=== PATIENT | male | born 1975 | race Caucasian/White ===

== ENCOUNTER 2017-10-04 03:58 | Inpatient (IN) | payer OTHER ==
[2017-10-04] VITALS (38 sets, daily range): BP systolic 92–143; BP diastolic 52–88; PULSE 61–110; TEMP 36.6–36.9; O2SAT 94–100; BMI 25.3
[~2017-10-04] VITALS: Ht 185.4 cm; Wt 87.9 kg
[2017-10-04] MEDS ORDERED: VENL150C56 PO (04:56)
[2017-10-04] MEDS ORDERED: RISP3TAB12 PO (04:56)
[2017-10-04] MEDS ORDERED: CLON2TAB3 PO (04:57)
[2017-10-04] MEDS ORDERED: INSDGIPEN SC (04:58)
[2017-10-04] MEDS ORDERED: ALPR1TAB3 PO (04:58)
[2017-10-04] MEDS ORDERED: ASPI81TA28 PO (04:59)
[2017-10-04] MEDS ORDERED: DIVA500T59 PO (05:00)
[2017-10-04] MEDS ORDERED: QUET1TAB7 PO (05:01)
[2017-10-04] MEDS ORDERED: BUPRTAB51 PO (05:02)
[2017-10-04] MEDS ORDERED: METF-384 PO (05:02)
[2017-10-04] MEDS ORDERED: GLIM4TAB2 PO (05:03)
--- NOTE | 2017-10-04 05:23 | EMERGENCY ROOM VISIT NOTE ---
History Report prepared by Bhakti: Thony Dietrich Under the Supervision of: Dr. Lesvia Shen D.O. First contact with patient: 04:29 Chief Complaint: CONFUSION Stated Complaint: ALTERED MENTAL STATUS History of Present Illness HPI limited due to altered mental status. The patient is a 41 year old male with a history of insulin-dependent diabetes and polysubstance abuse who presents to the Emergency Room with complaints of constant altered mental status that began prior to arrival. Patient was transferred from [facility] due to being delusional, confused, and disorientated. Patient has been a resident at [facility] for 1 day. Patient does not recall how he got to the ER. He believes that he was transferred from [facility] to [facility]. He admits to intermittent hallucinations. He states he was addicted to marijuana, alcohol, GBL, and cocaine. Patient is currently taking Keppra and insulin. Patient's last dose of Keppra was 8 hours ago. Patient states he is diabetic. Patient states he is employed at an [employer]. Source of History: patient Onset: Prior to arrival Position: other (Global) Modifying Factors (Relieving): other (None) Note: Patient has hallucinations. Review of Systems ROS limited secondary due to altered mental status. Past Medical & Surgical Medical Problems: (1) Diabetes Family History No pertinent family medical history. Social History Smoking Status: Never Smoker Alcohol Use: none Drug Use: cocaine, marijuana Occupation Status: employed Current/Historical Medications Scheduled Alprazolam (Xanax), 1 MG PO TID Aspirin (Aspirin Ec), 81 MG PO DAILY Bupropion (Wellbutrin-Xl), 150 MG PO DAILY Clonazepam (Klonopin), 2 MG PO HS Divalproex Sodium (Depakote), 500 MG PO BID Glimepiride (Glimepiride), 6 MG PO DAILY Insulin Glargine (Lantus Solostar), 8 SC QPM Metformin Hcl (Glucophage), 1,000 MG PO BID Quetiapine Fumarate (Seroquel), 25 MG PO BID Risperidone (Risperdal), 3 MG PO HS Venlafaxine Hcl (Effexor Extended Rel), 150 MG PO DAILY Allergies Coded Allergies: Azithromycin (Verified Allergy, Unknown, hives, 10/04/17) Erythromycin (Verified Allergy, Unknown, rash, 10/04/17) Physical Exam Vital Signs Date Time Temp Pulse Resp B/P (MAP) Pulse Ox O2 Delivery O2 Flow Rate FiO2 10/04/17 08:33 103 18 141/84 95 Room Air 10/04/17 06:58 96 18 158/81 95 Room Air 10/04/17 06:33 92 16 136/82 97 Room Air 10/04/17 05:05 107 10/04/17 04:06 36.8 99 18 141/88 95 Room Air Physical Exam HEENT: Head - normocephalic and atraumatic Pupils are equal, round, and reactive to light. Extraocular eye muscles are intact, and sclera are anicteric. Nose - moist nasal mucosa without discharge. Mouth - moist buccal mucosa. Oropharynx is nonerythematous and there is no tonsillar exudate or edema noted. Neck: Supple; no JVD, nuchal rigidity, cervical lymphadenopathy. Heart: Regular rate and rhythm. There is a normal S1 and S2 with no murmurs, clicks, or gallops appreciated. Lungs: Clear to auscultation bilaterally with no wheezes, rales, or rhonchi. Abdomen: Soft, completely nontender, nondistended, with good bowel sounds. There are no palpable pulsatile masses or hepatosplenomegaly. There is no guarding, rigidity, or rebound noted. Extremities: No evidence of cyanosis, clubbing, or edema. There are easily palpable peripheral pulses. Skin: warm and dry with good turgor and no rashes. Neuro: easily follows commands, confused about time and place, delusional at times. Medical Decision & Procedures ER Provider Diagnostic Interpretation: Radiology results as stated below per my review and the radiologist's interpretation: CT SCAN OF THE BRAIN WITHOUT IV CONTRAST CLINICAL HISTORY: Change in mental status. COMPARISON STUDY: No priors. TECHNIQUE: Unenhanced axial CT scan of the brain is performed from the vertex to the skull base. A dose lowering technique was utilized adhering to the principles of ALARA. The skull base was scanned twice due to motion artifact. CT DOSE: 1074.96 mGy.cm FINDINGS: Brain parenchyma: The brain parenchyma is normal in appearance. There is no hemorrhage, mass effect, or evidence of acute territorial ischemia by CT criteria. Aquino-white matter is preserved. No extra-axial fluid collection is seen. Ventricles, sulci, cisterns: Normal in configuration. Intracranial vasculature: The visualized intracranial vasculature at the skull base is normal in appearance. Calvarium: Unremarkable. Sinuses and mastoids: The visualized paranasal sinuses are clear. The mastoid air cells are well pneumatized. Orbits: The bony orbits are grossly intact. IMPRESSION: There is no hemorrhage, mass effect, or evidence of acute territorial ischemia by CT criteria. Electronically signed by: Luisito Caldwell M.D. 10/04/2017 8:02 AM Laboratory Results 10/04/17 04:32 Red Blood Count 4.21, Mean Corpuscular Volume 91.2, Mean Corpuscular Hemoglobin 32.3, Mean Corpuscular Hemoglobin Concent 35.4, Mean Platelet Volume 11.9, Neutrophils (%) (Auto) 78.6, Lymphocytes (%) (Auto) 13.2, Monocytes (%) (Auto) 7.5, Eosinophils (%) (Auto) 0.0, Basophils (%) (Auto) 0.3, Neutrophils # (Auto) 5.68, Lymphocytes # (Auto) 0.95, Monocytes # (Auto) 0.54, Eosinophils # (Auto) 0.00, Basophils # (Auto) 0.02 10/04/17 04:32 Test 10/04/17 04:32 10/04/17 05:05 10/04/17 05:12 White Blood Count 7.22 K/uL (4.8-10.8) Red Blood Count 4.21 M/uL (4.7-6.1) Hemoglobin 13.6 g/dL (14.0-18.0) Hematocrit 38.4 % (42-52) Mean Corpuscular Volume 91.2 fL (80-100) Mean Corpuscular Hemoglobin 32.3 pg (25-34) Mean Corpuscular Hemoglobin Concent 35.4 g/dl (32-36) Platelet Count 146 K/uL (130-400) Mean Platelet Volume 11.9 fL (7.4-10.4) Neutrophils (%) (Auto) 78.6 % Lymphocytes (%) (Auto) 13.2 % Monocytes (%) (Auto) 7.5 % Eosinophils (%) (Auto) 0.0 % Basophils (%) (Auto) 0.3 % Neutrophils # (Auto) 5.68 K/uL (1.4-6.5) Lymphocytes # (Auto) 0.95 K/uL (1.2-3.4) Monocytes # (Auto) 0.54 K/uL (0.11-0.59) Eosinophils # (Auto) 0.00 K/uL (0-0.5) Basophils # (Auto) 0.02 K/uL (0-0.2) RDW Standard Deviation 39.3 fL (36.4-46.3) RDW Coefficient of Variation 11.8 % (11.5-14.5) Immature Granulocyte % (Auto) 0.4 % Immature Granulocyte # (Auto) 0.03 K/uL (0.00-0.02) Anion Gap 7.0 mmol/L (3-11) Est Creatinine Clear Calc Drug Dose 110.9 ml/min Estimated GFR () 108.6 Estimated GFR (Non- 93.7 BUN/Creatinine Ratio 13.4 (10-20) Calcium Level 8.7 mg/dl (8.5-10.1) Magnesium Level 1.6 mg/dl (1.8-2.4) Total Bilirubin 0.4 mg/dl (0.2-1) Direct Bilirubin < 0.1 mg/dl (0-0.2) Aspartate Amino Transf (AST/SGOT) 8 U/L (15-37) Alanine Aminotransferase (ALT/SGPT) 21 U/L (12-78) Alkaline Phosphatase 88 U/L (45-117) Total Protein 6.8 gm/dl (6.4-8.2) Albumin 3.7 gm/dl (3.4-5.0) Beta-Hydroxybutyric Acid 2.05 mg/dL (0.2-2.81) Thyroid Stimulating Hormone (TSH) 1.790 uIu/ml (0.300-4.500) Salicylates Level < 1.7 mg/dl (2.8-20) Acetaminophen Level < 2 ug/ml (10-30) Ethyl Alcohol mg/dL < 3.0 mg/dl (0-3) Urine Color YELLOW Urine Appearance CLEAR (CLEAR) Urine pH 6.0 (4.5-7.5) Urine Specific [place] > 1.045 (1.000-1.030) Urine Protein NEG (NEG) Urine Glucose (UA) 3+ (NEG) Urine Ketones TRACE (NEG) Urine Occult Blood NEG (NEG) Urine Nitrite NEG (NEG) Urine Bilirubin NEG (NEG) Urine Urobilinogen NEG (NEG) Urine Leukocyte Esterase NEG (NEG) Urine Opiates Screen NEG (NEG) Urine Methadone, Qualitative NEG (NEG) Urine Barbiturates NEG (NEG) Urine Phencyclidine (PCP) Level NEG (NEG) Ur Amphetamine/Methamphetamine NEG (NEG) MDMA (Ecstasy) Screen NEG (NEG) Urine Benzodiazepines Screen POS (NEG) Urine Cocaine Metabolite NEG (NEG) Urine Marijuana (THC) NEG (NEG) Ammonia 22.0 umol/L (11-32) Laboratory results per my review. Medications Administered Medications (Trade) Dose Ordered Sig/Luma Route Start Time Stop Time Status Last Admin Dose Admin Lorazepam (Ativan Inj) 1 mg NOW STAT IV 10/04/17 06:20 10/04/17 06:21 DC 10/04/17 06:31 1 MG Sodium Chloride 1,000 ml @ 250 mls/hr Q4H STAT IV 10/04/17 07:27 10/04/17 10:49 DC 10/04/17 07:27 250 MLS/HR Lorazepam (Ativan Inj) 2 mg NOW STAT IV 10/04/17 08:41 10/04/17 08:42 DC 10/04/17 08:45 2 MG Sodium Chloride 1,000 ml @ 80 mls/hr [id number] IV 10/04/17 08:36 11/03/17 08:35 10/04/17 10:35 80 MLS/HR Procedure Ativan Inj 1mg IV, Sodium Chloride 1000 ml @ 250 mls/hr IV. ECG Indication: altered mental status Rate (beats per minute): 95 Rhythm: normal sinus Findings: no acute ischemic change, no ectopy, other (Poor baseline) ED Course 0440: The patient was evaluated in room B10. A complete history and physical examination were performed. Nursing notes and notes from [facility] were reviewed. An IV lock was initiated and labs were drawn as above. 0515: The patient had be redirected by nursing staff as he was up out of bed. His vital signs were stable. I ordered a CT scan of the brain because of his persistent altered mental status. 0620: The patient became more agitated and I ordered Ativan Inj 1mg IV 0640: I reassessed the patient and found him roaming the hallways with his EKG cords still attached. Nursing staff was alerted to watch him more closely. 0727: Sodium Chloride 1000 ml @ 250 mls/hr IV. 0730: Upon reevaluation, I discussed findings and results with the patient. He verbalized agreement of the treatment plan. I spoke with Dr. Lindquist of the [facility] Service. The patient will be evaluated for further management and care. Medical Decision The patient is a 41 year old male who presents to the ED with an altered mental state. Differential diagnosis includes drug withdrawal, alcohol withdrawal, serotonin syndrome, DKA, hypoglycemia, intracranial process, meningitis, and encephalopathy. Lab results show no leukocytosis, stable H&H, glucose = 314, BHA = 2.0, renal function is normal, LFTs are normal, ammonia level is normal, alcohol is negative, Tylenol and aspirin is negative, tox screen is positive for benzodiazepines, and urine positive for trace ketones. This is a 41-year-old male patient with a history of insulin dependent diabetes and drug addiction. He presents to the emergency department with an altered mental status and delusions. The history is somewhat difficult to understand but according to the patient, he was transferred from [facility] to [facility] yesterday. According to the notes from [facility], the patient became more agitated and delirious and therefore they sent him to the hospital for evaluation. He denies consuming alcohol in many months. He does admit to addiction to benzodiazepines most recently and abuse of GBL. The patient was found to be hyperglycemic but no evidence of DKA. Ammonia levels were normal. CT scan of the brain was unremarkable. I believe the patient is suffering from acute benzodiazepine withdrawal. [facility] for [facility]. Medication Reconcilliation Current Medication List: was personally reviewed by me Blood Pressure Screening Patient's blood pressure: Elevated blood pressure Blood pressure disposition: Elevated BP felt to be situational Consults Time Called: 06 Consulting Physician: Dr. Lindquist - [facility] Returned Call: [phone] Discussed the patient's case. The patient will be evaluated for further management. Impression Primary Impression: Benzodiazepine withdrawal Additional Impression: Hyperglycemia Scribe Attestation The scribe's documentation has been prepared under my direction and personally reviewed by me in its entirety. I confirm that the note above accurately reflects all work, treatment, procedures, and medical decision making performed by me. 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
[2017-10-04 05:42] LABS: ALBUMIN 3.7 gm/dl (3.4-5.0); ALT/SGPT 21 U/L (12-78); AST/SGOT 8 U/L (15-37); BLOOD UREA NITROGEN 13 mg/dl (7-18); CALCIUM 8.7 mg/dl (8.5-10.1); CARBON DIOXIDE 28 mmol/L (21-32); GLUCOSE 314 mg/dl (70-99); POTASSIUM 3.8 mmol/L (3.5-5.1); SODIUM 135 mmol/L (136-145)
[2017-10-04 05:44] LABS: BASO % 0.3 %; BASO ABS # 0.02 K/uL (0-0.2); HEMATOCRIT 38.4 % (42-52); HEMOGLOBIN 13.6 g/dL (14.0-18.0); IG# 0.03 K/uL (0.00-0.02); LYMPH % 13.2 %; LYMPH ABS # 0.95 K/uL (1.2-3.4); MEAN CELL VOLUME 91.2 fL (80-100); MEAN CORPUSCULAR HEMOGLOBIN 32.3 pg (25-34); MEAN CORPUSCULAR HGB CONC 35.4 g/dl (32-36); MEAN PLATELET VOLUME 11.9 fL (7.4-10.4); MONO % 7.5 %; MONO ABS # 0.54 K/uL (0.11-0.59); NEUT % 78.6 %; NEUT ABS # 5.68 K/uL (1.4-6.5); PLATELET COUNT 146 K/uL (130-400); RED CELL DISTRIBUTION WIDTH CV 11.8 % (11.5-14.5); RED CELL DISTRIBUTION WIDTH SD 39.3 fL (36.4-46.3); TOTAL PROTEIN 6.8 gm/dl (6.4-8.2); WHITE BLOOD COUNT 7.22 K/uL (4.8-10.8)
[2017-10-04 05:51] LABS: ALKALINE PHOSPHATASE 88 U/L (45-117)
[2017-10-04] MEDS ORDERED: LORAZEPAM 2 MG/ML 1 ML VIAL IV STA ×2 (06:20→08:41)
[2017-10-04] MEDS ORDERED: SODIUM CHLORIDE 0.9% 1000ML 1,000 ML IV STA (07:27)
--- NOTE | 2017-10-04 08:03 | DIAGNOSTIC IMAGING REPORT ---
CT SCAN OF THE BRAIN WITHOUT IV CONTRAST CLINICAL HISTORY: Change in mental status. COMPARISON STUDY: No priors. TECHNIQUE: Unenhanced axial CT scan of the brain is performed from the vertex to the skull base. A dose lowering technique was utilized adhering to the principles of ALARA. The skull base was scanned twice due to motion artifact. CT DOSE: 1074.96 mGy.cm FINDINGS: Brain parenchyma: The brain parenchyma is normal in appearance. There is no hemorrhage, mass effect, or evidence of acute territorial ischemia by CT criteria. Aquino-white matter is preserved. No extra-axial fluid collection is seen. Ventricles, sulci, cisterns: Normal in configuration. Intracranial vasculature: The visualized intracranial vasculature at the skull base is normal in appearance. Calvarium: Unremarkable. Sinuses and mastoids: The visualized paranasal sinuses are clear. The mastoid air cells are well pneumatized. Orbits: The bony orbits are grossly intact. IMPRESSION: There is no hemorrhage, mass effect, or evidence of acute territorial ischemia by CT criteria. Electronically signed by: Luisito Caldwell M.D. 10/04/2017 8:02 AM Dictated Date/Time: 10/04/2017 8:00 AM
[2017-10-04] MEDS ORDERED: LORAZEPAM 2 MG/ML 1 ML VIAL ONE (08:42)
[2017-10-04] MEDS ORDERED: GLUCAGON FOR INJ 1 MG VIAL SQ PRN (08:45)
[2017-10-04] MEDS ORDERED: GLUCOSE 10 TABS/TUBE PO PRN (08:45)
[2017-10-04] MEDS ORDERED: DEXTROSE 50% 50 ML SYR IV PRN (08:45)
[2017-10-04] MEDS ORDERED: GLUCOSE 40% GEL 15 GM TUBE PO PRN (08:45)
[2017-10-04] MEDS ORDERED: LORAZEPAM 2 MG/ML 1 ML VIAL IV PRN (09:00)
[2017-10-04] MEDS ORDERED: GABAPENTIN 600 MG TAB PO SCH (09:00)
--- NOTE | 2017-10-04 09:24 | History and Physical ---
History & Physical Date & Time of Service: Oct 04, 2017 at 09:05 Chief Complaint: Altered Mental Status Primary Care Physician: No Doctor, Assigned History of Present Illness Source: patient, clinic records This is a 41 year old male with an extensive history of drug and alcohol abuse. As per records, he has a history of alcohol abuse and multiple complications including alcoholic liver disease, thrombocytopenia, alcoholic coagulopathy, chronic pancreatitis and many withdrawal symptoms including withdrawal seizures. He also has an extensive drug abuse history which includes benzodiazepine abuse, cocaine abuse, GBL and marijuana abuse. He states that he last had a drink in January of 2017 due to being in trouble with the law. He last had cocaine about 6-7 years ago. He recently has had trouble with benzo abuse - has been getting benzodiazepines for his anxiety/depression - including Klonopin and Xanax, which he states he stops taking at random times, and then takes too much of when he gets withdrawal symptoms. He also is prescribed Risperdal and states he stops taking this at times on his own, but realizes he needs it, so takes multiple tablets at once. He was seen at the [facility] - but was sent over here due to worsening confusion, altered mental status, agitation and combativeness. He states he realizes that these symptoms occur but cannot stop his anger/agitation. Currently, denies most other symptoms, including chest pain, shortness of breath, nausea/vomiting/ diarrhea, fevers/chills. Past Medical/Surgical History Medical Problems: (1) Diabetes Status: Chronic Social History Smoking Status: Never Smoker Occupational Status: employed Allergies Coded Allergies: Azithromycin (Verified Allergy, Unknown, hives, 10/04/17) Erythromycin (Verified Allergy, Unknown, rash, 10/04/17) Home Medications Scheduled Alprazolam (Xanax), 1 MG PO TID Aspirin (Aspirin Ec), 81 MG PO DAILY Bupropion (Wellbutrin-Xl), 150 MG PO DAILY Clonazepam (Klonopin), 2 MG PO HS Divalproex Sodium (Depakote), 500 MG PO BID Glimepiride (Glimepiride), 6 MG PO DAILY Insulin Glargine (Lantus Solostar), 8 SC QPM Metformin Hcl (Glucophage), 1,000 MG PO BID Quetiapine Fumarate (Seroquel), 25 MG PO BID Risperidone (Risperdal), 3 MG PO HS Venlafaxine Hcl (Effexor Extended Rel), 150 MG PO DAILY Review of Systems Constitutional: + sweats, + weakness, No fever, No chills Respiratory: No cough, No sputum, No shortness of breath, No dyspnea on exertion, No dyspnea at rest Cardiovascular: No chest pain, No edema, No palpitations Abdomen: No pain, No nausea, No vomiting, No diarrhea, No constipation, No GI bleeding Musculoskeletal: No joint pain, No muscle pain Genitourinary - Male: No hematuria, No dysuria, No urinary frequency, No urinary urgency, No urinary hesitancy, No urinary retention Neurologic: + weakness, No memory loss, No paralysis Psychiatric: + depression symptoms, + anxiety, + insomnia, + substance abuse Endocrine: No fatigue Hematologic / Lymphatic: No abnormal bleeding/bruising, No clotting problems Integumentary: No rash Allergic / Immunologic: No environmental allergies, No seasonal allergies Physical Exam Vital Signs Date Time Temp Pulse Resp B/P (MAP) Pulse Ox O2 Delivery O2 Flow Rate FiO2 10/04/17 08:46 94 18 94 Room Air 10/04/17 08:33 103 18 141/84 95 Room Air 10/04/17 06:58 96 18 158/81 95 Room Air 10/04/17 06:33 92 16 136/82 97 Room Air 10/04/17 05:05 107 10/04/17 04:06 36.8 99 18 141/88 95 Room Air General Appearance: + pertinent finding (+agitated, anxious, tremulousness) Head: normocephalic, atraumatic Eyes: normal inspection ENT: hearing grossly normal Respiratory/Chest: lungs clear, normal breath sounds, no respiratory distress, no accessory muscle use Cardiovascular: no edema, no gallop, no JVD, no murmur, + tachycardia Abdomen/GI: normal bowel sounds, non tender, soft Back: normal inspection, normal range of motion Extremities/Musculoskelatal: normal inspection, no calf tenderness, normal capillary refill, no pedal edema, normal range of motion Neurologic/Psych: alert, + depressed affect, + disoriented, + pertinent finding (flight of ideas, agitated, can be redirected, anxious, tremulous, currently calm and answering questions appropriately, but somewhat disoriented) Skin: normal color, warm/dry Lymphatic: no adenopathy Diagnostics Laboratory Results Results Past 24 Hours Test 10/04/17 04:32 10/04/17 05:05 10/04/17 05:12 10/04/17 08:51 Range/Units White Blood Count 7.22 4.8-10.8 K/uL Red Blood Count 4.21 4.7-6.1 M/uL Hemoglobin 13.6 14.0-18.0 g/dL Hematocrit 38.4 42-52 % Mean Corpuscular Volume 91.2 80-100 fL Mean Corpuscular Hemoglobin 32.3 25-34 pg Mean Corpuscular Hemoglobin Concent 35.4 32-36 g/dl Platelet Count 146 130-400 K/uL Mean Platelet Volume 11.9 7.4-10.4 fL Neutrophils (%) (Auto) 78.6 % Lymphocytes (%) (Auto) 13.2 % Monocytes (%) (Auto) 7.5 % Eosinophils (%) (Auto) 0.0 % Basophils (%) (Auto) 0.3 % Neutrophils # (Auto) 5.68 1.4-6.5 K/uL Lymphocytes # (Auto) 0.95 1.2-3.4 K/uL Monocytes # (Auto) 0.54 0.11-0.59 K/uL Eosinophils # (Auto) 0.00 0-0.5 K/uL Basophils # (Auto) 0.02 0-0.2 K/uL RDW Standard Deviation 39.3 36.4-46.3 fL RDW Coefficient of Variation 11.8 11.5-14.5 % Immature Granulocyte % (Auto) 0.4 % Immature Granulocyte # (Auto) 0.03 0.00-0.02 K/uL Sodium Level 135 136-145 mmol/L Potassium Level 3.8 3.5-5.1 mmol/L Chloride Level 100 98-107 mmol/L Carbon Dioxide Level 28 21-32 mmol/L Anion Gap 7.0 3-11 mmol/L Blood Urea Nitrogen 13 7-18 mg/dl Creatinine 1.00 0.60-1.40 mg/dl Est Creatinine Clear Calc Drug Dose 110.9 ml/min Estimated GFR () 108.6 Estimated GFR (Non- 93.7 BUN/Creatinine Ratio 13.4 10-20 Random Glucose 314 70-99 mg/dl Calcium Level 8.7 8.5-10.1 mg/dl Total Bilirubin 0.4 0.2-1 mg/dl Direct Bilirubin < 0.1 0-0.2 mg/dl Aspartate Amino Transf (AST/SGOT) 8 15-37 U/L Alanine Aminotransferase (ALT/SGPT) 21 12-78 U/L Alkaline Phosphatase 88 45-117 U/L Total Protein 6.8 6.4-8.2 gm/dl Albumin 3.7 3.4-5.0 gm/dl Beta-Hydroxybutyric Acid 2.05 0.2-2.81 mg/dL Salicylates Level < 1.7 2.8-20 mg/dl Acetaminophen Level < 2 10-30 ug/ml Ethyl Alcohol mg/dL < 3.0 0-3 mg/dl Urine Color YELLOW Urine Appearance CLEAR CLEAR Urine pH 6.0 4.5-7.5 Urine Specific [place] > 1.045 1.000-1.030 Urine Protein NEG NEG Urine Glucose (UA) 3+ NEG Urine Ketones TRACE NEG Urine Occult Blood NEG NEG Urine Nitrite NEG NEG Urine Bilirubin NEG NEG Urine Urobilinogen NEG NEG Urine Leukocyte Esterase NEG NEG Urine Opiates Screen NEG NEG Urine Methadone, Qualitative NEG NEG Urine Barbiturates NEG NEG Urine Phencyclidine (PCP) Level NEG NEG Ur Amphetamine/Methamphetamine NEG NEG MDMA (Ecstasy) Screen NEG NEG Urine Benzodiazepines Screen POS NEG Urine Cocaine Metabolite NEG NEG Urine Marijuana (THC) NEG NEG Ammonia 22.0 11-32 umol/L Diagnostic Radiology CT SCAN OF THE BRAIN WITHOUT IV CONTRAST CLINICAL HISTORY: Change in mental status. COMPARISON STUDY: No priors. TECHNIQUE: Unenhanced axial CT scan of the brain is performed from the vertex to the skull base. A dose lowering technique was utilized adhering to the principles of ALARA. The skull base was scanned twice due to motion artifact. CT DOSE: 1074.96 mGy.cm FINDINGS: Brain parenchyma: The brain parenchyma is normal in appearance. There is no hemorrhage, mass effect, or evidence of acute territorial ischemia by CT criteria. Aquino-white matter is preserved. No extra-axial fluid collection is seen. Ventricles, sulci, cisterns: Normal in configuration. Intracranial vasculature: The visualized intracranial vasculature at the skull base is normal in appearance. Calvarium: Unremarkable. Sinuses and mastoids: The visualized paranasal sinuses are clear. The mastoid air cells are well pneumatized. Orbits: The bony orbits are grossly intact. IMPRESSION: There is no hemorrhage, mass effect, or evidence of acute territorial ischemia by CT criteria. EKG NSR at 95 bpm Impression Assessment and Plan This is a 41 year old male with an extensive history of drug and alcohol abuse; here due to agitated, altered mental status/confusion Altered Mental Status, likely due to Benzodiazepine Withdrawal Symptoms patient is sent here from [facility] having cluster of symptoms including agitation, altered mental status/confusion , tremulous/anxious admits to having trouble with Klonopin, Xanax, Risperdal abuse has a history of alcohol abuse, states his last drink was in January of 2017 plan to admit to tele consult mental health adding Ativan PRN for benzo withdrawal symptoms Gabapentin protocol add thiamine, folic acid, multivitamin check B12, folic acid, TSH, magnesium Insulin Dependent DM2 likely secondary to chronic alcohol abuse and chronic pancreatitis BSGs on arrival > 300; serum ketones negative, trace urinary ketones will check an Ha1c hold oral agents start Lantus at 10 units BID and a sliding scale Depression/Anxiety, possible Bipolar Disorder will continue Risperdal, Effexor, Wellbutrin, and Seroquel home doses for now mental health for medication reconciliation Seizure Disorder has had EtOH withdrawal seizures will continue Depakote at home dose to note: he was receiving Keppra at [facility], but records indicate he was on Depakote monitor electrolytes, magnesium, etc. DVT ppx SCDs FULL CODE VTE Prophylaxis VTE Risk Assessment Done? Y/N: Yes Risk Level: Low
[2017-10-04] MEDS ORDERED: HALOPERIDOL LACTATE 5 MG/ML 1 ML VIAL IM STA (10:16)
[2017-10-04] MEDS: SODIUM CHLORIDE 0.9% 1000ML 1,000 ML IV SCH (10:35)
[2017-10-04] MEDS ORDERED: DexMEDEtomidine HCL IV 200 MCG in SODIUM CHLORIDE 0.9% 50ML 48 ML IV STA (10:37)
[2017-10-04] MEDS ORDERED: GABAPENTIN 400 MG CAP PO ONE (10:45)
[2017-10-04] MEDS: INSULIN GLARGINE SOLOSTAR 100 UNITS/ML 3 ML PEN SC SCH ×2 (10:51→21:38)
[2017-10-04] MEDS: DexMEDEtomidine HCL IV 200 MCG in SODIUM CHLORIDE 0.9% 50ML 48 ML IV PRN ×2 (11:00→22:04)
[2017-10-04] MEDS: THIAMINE HCL INJ 100 MG in SYRINGE 9 ML IV SCH (11:06)
[2017-10-04] MEDS: ASPIRIN 81 MG ECTAB PO SCH (11:07)
[2017-10-04] MEDS: DIVALPROEX SODIUM 500 MG DELAY RELEASE TAB PO SCH ×2 (11:07→21:27)
[2017-10-04] MEDS: VENLAFAXINE HCL XR 150 MG CAPXR PO SCH (11:08)
[2017-10-04] MEDS: QUETIAPINE FUMARATE 25 MG TAB PO SCH ×2 (11:08→21:27)
[2017-10-04] MEDS: BuPROPion XL 150 MG TABCR PO SCH (11:08)
[2017-10-04] MEDS ORDERED: GABAPENTIN 1200MG LOADING DOSE PO ONE (12:00)
[2017-10-04] MEDS: INSULIN ASPART 100 UNITS/ML 3 ML PEN SC SCH ×3 (12:39→21:39)
--- NOTE | 2017-10-04 13:22 | Critical Care Consultation ---
Critical Care Consultation Date of Consultation: Oct 04, 2017. Attending Physician: Raul Farfan DO Reason for Consultation: Acute agitated delirium requiring continuous sedative infusions History of Present Illness History is obtained from prior medical records, emergency department, hospitalist physician as the patient is currently in [place]y stated delirious state. Per the ED records the patient was transferred from [facility] [place] due to being delusional confused and disoriented. He was resident at the hospital for one day. Positive arrival to the emergency department he reportedly admitted to being on marijuana, alcohol, G by mouth, and cocaine. Patient had been taking his Keppra regularly. In the emergency department he was given 1 mg of Ativan and started on normal saline infusion at 250 ML's per hour. In discussion with the hospitalist patient has a history of alcohol abuse, occult liver disease, Prevacid P [place], alcohol-induced coagulopathy, chronic pancreatitis and withdrawal symptoms that included withdrawal seizures. Reportedly his last alcohol consumption was in January 2017. Last reported cocaine use 6-7 years ago. He currently takes Klonopin and Xanax. He is also prescribed Risperdal. I have reviewed his PA COMPUTER DRAFTER: He has recorded prescriptions for Klonopin and Xanax , 30 day supplies's Xanax 1 mg with the dosing frequency consistent with 3 times a day and Klonopin 2 mg with the dosing frequency consistent with one tablet a day he appears to utilize one provider in one pharmacy. During my evaluation the place and did not admit to any complaints, however he was obviously delirious and disoriented to place time did not exhibit a coherent thought process. Past Medical/Surgical History Patient's problem list consistent diabetes, hypoglycemia, benzodiazepine withdrawal. This is in addition to the past medical history noted above Reported surgical history of incarcerated hernia requiring exploratory laparotomy. Social History Smoking Status: Unknown if Ever Smoked Occupation Status: employed Allergies Coded Allergies: Azithromycin (Verified Allergy, Unknown, hives, 10/04/17) Erythromycin (Verified Allergy, Unknown, rash, 10/04/17) Home Medications Scheduled Alprazolam (Xanax), 1 MG PO TID Aspirin (Aspirin Ec), 81 MG PO DAILY Bupropion (Wellbutrin-Xl), 150 MG PO DAILY Clonazepam (Klonopin), 2 MG PO HS Divalproex Sodium (Depakote), 500 MG PO BID Glimepiride (Glimepiride), 6 MG PO DAILY Insulin Glargine (Lantus Solostar), 8 SC QPM Metformin Hcl (Glucophage), 1,000 MG PO BID Quetiapine Fumarate (Seroquel), 25 MG PO BID Risperidone (Risperdal), 3 MG PO HS Venlafaxine Hcl (Effexor Extended Rel), 150 MG PO DAILY Current Inpatient Medications Current Inpatient Medications Medications (Trade) Dose Ordered Sig/Luma Route Start Time Stop Time Status Last Admin Dose Admin Sodium Chloride 1,000 ml @ 80 mls/hr [id number] IV 10/04/17 08:36 11/03/17 08:35 10/04/17 10:35 80 MLS/HR Insulin Glargine (Lantus Solostar Pen) 10 units Q12 SC 10/04/17 09:00 11/03/17 08:59 10/04/17 10:51 10 UNITS Insulin Aspart (novoLOG ASPART) SLIDING SCALE If C... ACHS SC 10/04/17 11:00 11/03/17 10:59 10/04/17 12:39 8 UNITS Glucose (Glucose 40% Gel) 15-30 GRAMS 15 GRAMS... UD PRN PO 10/04/17 08:45 11/03/17 08:44 Glucose (Glucose Chew Tab) 4-8 Tablets 4 Tabl... UD PRN PO 10/04/17 08:45 11/03/17 08:44 Dextrose (Dextrose 50% 50ML Syringe) 25-50ML OF 50% DW IV FOR... UD PRN IV 10/04/17 08:45 11/03/17 08:44 Glucagon (Glucagon Inj) 1 mg UD PRN SQ 10/04/17 08:45 11/03/17 08:44 Thiamine HCl 100 mg/Syringe 10 ml @ 2 mls/min Q24H IV 10/04/17 11:00 11/03/17 10:59 10/04/17 11:06 2 MLS/MIN Lorazepam (Ativan Inj) 1 mg ONE PRN IV 10/04/17 09:00 Aspirin (Ecotrin Tab) 81 mg DAILY PO 10/04/17 09:00 11/03/17 08:59 10/04/17 11:07 81 MG Bupropion HCl (Wellbutrin-Xl Tab) 150 mg DAILY PO 10/04/17 09:00 11/03/17 08:59 10/04/17 11:08 150 MG Divalproex Sodium (Depakote Delay Rel Tab) 500 mg BID PO 10/04/17 09:00 11/03/17 08:59 10/04/17 11:07 500 MG Quetiapine Fumarate (seroQUEL TAB) 25 mg BID PO 10/04/17 09:00 11/03/17 08:59 10/04/17 11:08 25 MG Risperidone (Risperdal Tab) 3 mg HS PO 10/04/17 21:00 11/03/17 20:59 Venlafaxine HCl (effeXOR EXTENDED REL CAP) 150 mg DAILY PO 10/04/17 09:00 11/03/17 08:59 10/04/17 11:08 150 MG Dexmedetomidine HCl 200 mcg/ Sodium Chloride 50 ml @ 0 mls/hr Q0M PRN IV 10/04/17 10:45 10/08/17 10:44 Gabapentin (Neurontin Tab) 600 mg Q6H PO 10/04/17 18:00 10/05/17 00:01 Gabapentin (Neurontin Tab) 600 mg Q8H PO 10/05/17 08:00 10/06/17 00:01 Gabapentin (Neurontin Tab) 600 mg Q12H PO 10/06/17 12:00 10/07/17 00:01 Gabapentin (Neurontin Tab) 600 mg Q24H PO 10/08/17 00:00 10/08/17 00:01 Review of Systems Unable to obtain secondary to altered mental status Physical Exam Date Time Temp Pulse Resp B/P (MAP) Pulse Ox O2 Delivery O2 Flow Rate FiO2 10/04/17 11:31 86 14 115/73 (87) 97 Nasal Cannula 2.0 10/04/17 11:30 85 13 97 10/04/17 11:25 97 Nasal Cannula 2.0 10/04/17 11:16 101 17 128/79 (95) 98 10/04/17 11:15 88 16 96 10/04/17 11:01 92 20 135/85 (102) 95 2.0 10/04/17 11:00 91 15 94 10/04/17 10:45 107 12 96 10/04/17 10:30 110 18 95 Nasal Cannula 2.0 10/04/17 10:15 94 25 10/04/17 10:04 36.6 87 21 100 Room Air 10/04/17 10:00 143/88 (106) 10/04/17 09:32 87 18 133/95 98 Nasal Cannula 2.0 10/04/17 08:46 94 18 94 Room Air 10/04/17 08:33 103 18 141/84 95 Room Air 10/04/17 06:58 96 18 158/81 95 Room Air 10/04/17 06:33 92 16 136/82 97 Room Air 10/04/17 05:05 107 10/04/17 04:06 36.8 99 18 141/88 95 Room Air General Appearance: mild distress Head: normocephalic, atraumatic Eyes: PERRLA, no discharge ENT: normal nasal exam, normal mouth exam Neck: normal range of motion, no tenderness, trachea midline Respiratory: breath sounds normal, clear to auscultation Cardiovasular: regular rate/rhythm, normal S1S2 Abdomen: non tender, other (scar in the midline) Upper Extremities: no edema Lower Extremities: no edema Neuro: alert, normal motor exam, normal speech, disoriented, confused, memory abnormal Psychiatric: anxious Laboratory Results Last 24 Hours Test 10/04/17 04:32 10/04/17 05:05 10/04/17 05:12 10/04/17 09:10 White Blood Count 7.22 K/uL Red Blood Count 4.21 M/uL Hemoglobin 13.6 g/dL Hematocrit 38.4 % Mean Corpuscular Volume 91.2 fL Mean Corpuscular Hemoglobin 32.3 pg Mean Corpuscular Hemoglobin Concent 35.4 g/dl Platelet Count 146 K/uL Mean Platelet Volume 11.9 fL Neutrophils (%) (Auto) 78.6 % Lymphocytes (%) (Auto) 13.2 % Monocytes (%) (Auto) 7.5 % Eosinophils (%) (Auto) 0.0 % Basophils (%) (Auto) 0.3 % Neutrophils # (Auto) 5.68 K/uL Lymphocytes # (Auto) 0.95 K/uL Monocytes # (Auto) 0.54 K/uL Eosinophils # (Auto) 0.00 K/uL Basophils # (Auto) 0.02 K/uL RDW Standard Deviation 39.3 fL RDW Coefficient of Variation 11.8 % Immature Granulocyte % (Auto) 0.4 % Immature Granulocyte # (Auto) 0.03 K/uL Sodium Level 135 mmol/L Potassium Level 3.8 mmol/L Chloride Level 100 mmol/L Carbon Dioxide Level 28 mmol/L Anion Gap 7.0 mmol/L Blood Urea Nitrogen 13 mg/dl Creatinine 1.00 mg/dl Est Creatinine Clear Calc Drug Dose 110.9 ml/min Estimated GFR () 108.6 Estimated GFR (Non- 93.7 BUN/Creatinine Ratio 13.4 Random Glucose 314 mg/dl Calcium Level 8.7 mg/dl Magnesium Level 1.6 mg/dl Total Bilirubin 0.4 mg/dl Direct Bilirubin < 0.1 mg/dl Aspartate Amino Transf (AST/SGOT) 8 U/L Alanine Aminotransferase (ALT/SGPT) 21 U/L Alkaline Phosphatase 88 U/L Total Protein 6.8 gm/dl Albumin 3.7 gm/dl Beta-Hydroxybutyric Acid 2.05 mg/dL Thyroid Stimulating Hormone (TSH) 1.790 uIu/ml Salicylates Level < 1.7 mg/dl Acetaminophen Level < 2 ug/ml Ethyl Alcohol mg/dL < 3.0 mg/dl Urine Color YELLOW Urine Appearance CLEAR Urine pH 6.0 Urine Specific [place] > 1.045 Urine Protein NEG Urine Glucose (UA) 3+ Urine Ketones TRACE Urine Occult Blood NEG Urine Nitrite NEG Urine Bilirubin NEG Urine Urobilinogen NEG Urine Leukocyte Esterase NEG Urine Opiates Screen NEG Urine Methadone, Qualitative NEG Urine Barbiturates NEG Urine Phencyclidine (PCP) Level NEG Ur Amphetamine/Methamphetamine NEG MDMA (Ecstasy) Screen NEG Urine Benzodiazepines Screen POS Urine Cocaine Metabolite NEG Urine Marijuana (THC) NEG Ammonia 22.0 umol/L Vitamin B12 Level 584 pg/mL Folate > 24.00 ng/mL Test 10/04/17 12:21 Bedside Glucose 287 mg/dl Diagnostic Results I reviewed this CT report dated 10/04/2017 Assessment & Plan Reason Critically Ill: Benzodiazepine withdrawal PLAN: Neuro: Acute agitated delirium * Likely related to benzodiazepine withdrawal * Start Precedex infusion * Continue alcohol withdrawal morning * There is a record of Depakote use on the H&P, I will check a Depakote level Resp: No oxygen requirement CV: Patient is nondiabetic may benefit from LUCI inhibitor as an outpatient Fluids/Renal: Normal saline infusing at 80 ML's per hour ID: Afebrile, no meningismus signs GI/Nutrition: No evidence of transaminitis Heme: Lovenox 40 mg subcutaneous for DVT prophylaxis Endocrine: Hyperglycemia, no evidence of DKA at this time Psych, toxicology: * Normal gap * Negative alcohol, negative salicylate, negative Tylenol * Ammonia level normal * QTc: 452 * Patient is a danger to self and staff required physical violent restraints initially. * After additional sedative medication the patient was able to be D escalated soft limb restraints Patient is critically ill as he is at risk for benzodiazepine withdrawal and concern for withdrawal seizures I have personally spent 60 minutes of critical care time in the direct management of this patient. This is a life/limb threatening event. This includes time spent evaluating patient, direct bedside care, chart review, placing orders, interpretation of diagnostic studies, discussion with consultants, patient, and family members, as well as other required patient management activities. This time is exclusive of all separately billable procedures, and teaching time and separate from and in addition to any other critical care service time.
[2017-10-04] MEDS ORDERED: INSULIN PROTOCOL GOAL RANGE ONE (13:30)
[2017-10-04] MEDS ORDERED: INSULIN IV INFUSION PROTOCOL SCH (14:03)
[2017-10-04 14:42] LABS: INR 1.1 (0.9-1.1)
[2017-10-04] MEDS ORDERED: ENOXAPARIN 40 MG/0.4 ML SYR SQ STA (15:05)
[2017-10-04] MEDS: MAGNESIUM SULFATE 1GM / D5W 1 GM in PREMIXED IN D5W 100 ML IV SCH ×2 (15:49→17:09)
[2017-10-04] MEDS: GABAPENTIN 600MG Q6H DOSE PO SCH ×2 (15:53→21:27)
[2017-10-04] MEDS ORDERED: INSULIN ASPART 100 UNITS/ML 3 ML PEN SC SCH (17:15)
[2017-10-04] MEDS ORDERED: GABAPENTIN 600MG Q6H DOSE PO SCH (18:00)
[2017-10-04] MEDS: RISPERIDONE 3 MG TAB PO SCH (21:26)
[2017-10-05] VITALS (26 sets, daily range): BP systolic 110–150; BP diastolic 64–90; PULSE 69–92; TEMP 36.6–36.8; O2SAT 91–97; BMI 25.6
[2017-10-05] MEDS: SODIUM CHLORIDE 0.9% 1000ML 1,000 ML IV SCH ×3 (01:05→23:24)
[2017-10-05 06:19] LABS: HEMATOCRIT 38.8 % (42-52); HEMOGLOBIN 13.7 g/dL (14.0-18.0); MEAN CELL VOLUME 92.2 fL (80-100); MEAN CORPUSCULAR HEMOGLOBIN 32.5 pg (25-34); MEAN CORPUSCULAR HGB CONC 35.3 g/dl (32-36); MEAN PLATELET VOLUME 10.8 fL (7.4-10.4); PLATELET COUNT 122 K/uL (130-400); RED CELL DISTRIBUTION WIDTH SD 40.5 fL (36.4-46.3); WHITE BLOOD COUNT 4.32 K/uL (4.8-10.8)
[2017-10-05] MEDS: GABAPENTIN 600MG Q8H DOSE PO SCH ×3 (06:36→21:02)
[2017-10-05 06:52] LABS: CREATININE 0.79 mg/dl (0.60-1.40); PHOSPHORUS 3.3 mg/dl (2.5-4.9); POTASSIUM 3.6 mmol/L (3.5-5.1)
[2017-10-05] MEDS ORDERED: GABAPENTIN 600MG Q8H DOSE PO SCH (08:00)
[2017-10-05] MEDS: DIVALPROEX SODIUM 500 MG DELAY RELEASE TAB PO SCH ×2 (08:13→20:55)
[2017-10-05] MEDS: QUETIAPINE FUMARATE 25 MG TAB PO SCH (08:13)
[2017-10-05] MEDS: ENOXAPARIN 40 MG/0.4 ML SYR SQ SCH (08:14)
[2017-10-05] MEDS: BuPROPion XL 150 MG TABCR PO SCH (08:14)
[2017-10-05] MEDS: ASPIRIN 81 MG ECTAB PO SCH (08:15)
[2017-10-05] MEDS: VENLAFAXINE HCL XR 150 MG CAPXR PO SCH (08:15)
[2017-10-05] MEDS: INSULIN GLARGINE SOLOSTAR 100 UNITS/ML 3 ML PEN SC SCH ×2 (08:16→20:59)
[2017-10-05] MEDS: INSULIN ASPART 100 UNITS/ML 3 ML PEN SC SCH ×4 (08:35→20:59)
[2017-10-05] MEDS: THIAMINE HCL INJ 100 MG in SYRINGE 9 ML IV SCH (11:18)
--- NOTE | 2017-10-05 13:31 | Critical Care Progress Note ---
Critical Care Progress Note Date of Service Oct 05, 2017. ICU Day ICU Day Number: [address] Anne Subjective No overnight events, significant improvement status Objective General Appearance: No acute distress Head: normocephalic, atraumatic Eyes: PERRLA, no discharge ENT: normal nasal exam, normal mouth exam Neck: normal range of motion, no tenderness, trachea midline Abdomen: non tender, other (scar in the midline) Upper Extremities: no edema Lower Extremities: no edema Neuro: alert, normal motor exam, normal speech, oriented to time and place Psychiatric: Coherent Assessment & Plan Acute agitated delirium * Likely secondary to acute benzodiazepine withdrawal * Patient has been off precedex for approximately 3 hours without rebound agitation * Continue current meds Patient tolerating diet Waiting psychiatry consult Stable for downgrade out of the ICU today. I spent 25 minutes discussing with the patient, physical examination, and patient care activities. Consults & Procedures Consultants: Psychiatry Critical care Data Medications: Current Inpatient Medications Medications (Trade) Dose Ordered Sig/Luma Route Start Time Stop Time Status Last Admin Dose Admin Sodium Chloride 1,000 ml @ 80 mls/hr [id number] IV 10/04/17 08:36 11/03/17 08:35 10/05/17 11:26 80 MLS/HR Insulin Glargine (Lantus Solostar Pen) 10 units Q12 SC 10/04/17 09:00 11/03/17 08:59 10/05/17 08:16 10 UNITS Insulin Aspart (novoLOG ASPART) SLIDING SCALE If C... ACHS SC 10/04/17 11:00 11/03/17 10:59 10/05/17 11:55 2 UNITS Glucose (Glucose 40% Gel) 15-30 GRAMS 15 GRAMS... UD PRN PO 10/04/17 08:45 11/03/17 08:44 Glucose (Glucose Chew Tab) 4-8 Tablets 4 Tabl... UD PRN PO 10/04/17 08:45 11/03/17 08:44 Dextrose (Dextrose 50% 50ML Syringe) 25-50ML OF 50% DW IV FOR... UD PRN IV 10/04/17 08:45 11/03/17 08:44 Glucagon (Glucagon Inj) 1 mg UD PRN SQ 10/04/17 08:45 11/03/17 08:44 Thiamine HCl 100 mg/Syringe 10 ml @ 2 mls/min Q24H IV 10/04/17 11:00 11/03/17 10:59 10/05/17 11:18 2 MLS/MIN Lorazepam (Ativan Inj) 1 mg ONE PRN IV 10/04/17 09:00 Aspirin (Ecotrin Tab) 81 mg DAILY PO 10/04/17 09:00 11/03/17 08:59 10/05/17 08:15 81 MG Bupropion HCl (Wellbutrin-Xl Tab) 150 mg DAILY PO 10/04/17 09:00 11/03/17 08:59 10/05/17 08:14 150 MG Divalproex Sodium (Depakote Delay Rel Tab) 500 mg BID PO 10/04/17 09:00 11/03/17 08:59 10/05/17 08:13 500 MG Quetiapine Fumarate (seroQUEL TAB) 25 mg BID PO 10/04/17 09:00 11/03/17 08:59 10/05/17 08:13 25 MG Risperidone (Risperdal Tab) 3 mg HS PO 10/04/17 21:00 11/03/17 20:59 10/04/17 21:26 3 MG Venlafaxine HCl (effeXOR EXTENDED REL CAP) 150 mg DAILY PO 10/04/17 09:00 11/03/17 08:59 10/05/17 08:15 150 MG Enoxaparin Sodium (Lovenox Inj) 40 mg QAM SQ 10/05/17 09:00 11/04/17 08:59 10/05/17 08:14 40 MG Gabapentin (Neurontin Tab) 600 mg Q8H PO 10/05/17 06:00 10/05/17 22:01 10/05/17 06:36 600 MG Gabapentin (Neurontin Tab) 600 mg Q12H PO 10/06/17 10:00 10/06/17 22:01 Gabapentin (Neurontin Tab) 600 mg Q24H PO 10/07/17 22:00 10/07/17 22:01 I & O: 24-Hour Column 10/06/17 08:00 Intake Total 874 ml Output Total 2000 ml Balance -1126 ml Vital Signs: Date Time Temp Pulse Resp B/P (MAP) Pulse Ox O2 Delivery O2 Flow Rate FiO2 10/05/17 13:00 75 13 129/77 (94) 91 Room Air 10/05/17 12:30 78 10 150/90 (110) 94 10/05/17 12:01 77 11 131/73 (92) 96 10/05/17 12:00 84 19 96 10/05/17 11:02 96 Nasal Cannula 2.0 10/05/17 11:00 36.7 78 14 115/72 (86) 93 10/05/17 10:30 79 16 113/76 (88) 93 10/05/17 10:00 80 14 113/74 (87) 92 Nasal Cannula 2.0 10/05/17 09:31 92 13 113/86 (95) 95 10/05/17 09:01 88 19 121/80 (94) 94 10/05/17 09:00 83 15 94 10/05/17 08:30 36.8 80 13 134/80 (98) 97 Nasal Cannula 2.0 10/05/17 08:30 96 Nasal Cannula 2.0 10/05/17 08:01 72 24 117/89 (98) 96 10/05/17 08:00 71 19 94 10/05/17 07:31 70 12 117/77 (90) 96 10/05/17 07:30 70 12 95 10/05/17 07:01 78 15 119/78 (92) 96 10/05/17 07:00 72 21 96 10/05/17 06:00 72 15 114/82 (93) 96 Nasal Cannula 2.0 10/05/17 04:00 Nasal Cannula 2.0 10/05/17 04:00 36.7 69 18 110/64 (79) 96 Nasal Cannula 2.0 10/05/17 02:00 73 20 124/78 (93) 95 Nasal Cannula 2.0 10/05/17 00:00 36.8 78 15 114/77 (89) 97 Nasal Cannula 2.0 10/04/17 23:59 Nasal Cannula 2.0 10/04/17 22:00 65 14 120/81 (94) 97 Nasal Cannula 2.0 10/04/17 20:00 36.7 71 27 109/74 (86) 96 Nasal Cannula 2.0 10/04/17 20:00 Nasal Cannula 2.0 10/04/17 18:01 67 17 113/70 (84) 97 Nasal Cannula 2.0 10/04/17 18:00 68 12 96 10/04/17 17:31 68 11 113/69 (84) 98 10/04/17 17:30 69 12 98 10/04/17 17:01 65 17 111/69 (83) 96 Nasal Cannula 2.0 10/04/17 17:00 66 10 96 10/04/17 16:31 68 13 109/65 (80) 97 10/04/17 16:30 71 10 97 10/04/17 16:08 96 Nasal Cannula 2.0 10/04/17 16:00 36.9 74 14 124/73 (90) 96 Nasal Cannula 2.0 10/04/17 15:30 65 14 114/66 (82) 96 10/04/17 15:00 64 0 102/62 (75) 97 10/04/17 14:30 65 13 103/65 (78) 99 10/04/17 14:00 67 10 101/66 (78) 97 Nasal Cannula 2.0 10/04/17 13:45 65 3 98/65 (76) 99 10/04/17 13:31 61 3 94/56 (69) 98 10/04/17 13:30 62 3 97 Laboratory Results: Last 24 Hours Test 10/04/17 14:27 10/04/17 15:46 10/04/17 17:03 10/04/17 21:24 Prothrombin Time 11.2 SECONDS Prothromb Time International Ratio 1.1 Valproic Acid (Depakene) Level 42 mcg/ml Bedside Glucose 76 mg/dl 180 mg/dl 156 mg/dl Test 10/05/17 05:58 10/05/17 06:11 10/05/17 11:14 Bedside Glucose 126 mg/dl 152 mg/dl White Blood Count 4.32 K/uL Red Blood Count 4.21 M/uL Hemoglobin 13.7 g/dL Hematocrit 38.8 % Mean Corpuscular Volume 92.2 fL Mean Corpuscular Hemoglobin 32.5 pg Mean Corpuscular Hemoglobin Concent 35.3 g/dl RDW Standard Deviation 40.5 fL RDW Coefficient of Variation 12.0 % Platelet Count 122 K/uL Mean Platelet Volume 10.8 fL Sodium Level 140 mmol/L Potassium Level 3.6 mmol/L Chloride Level 105 mmol/L Carbon Dioxide Level 31 mmol/L Anion Gap 4.0 mmol/L Blood Urea Nitrogen 9 mg/dl Creatinine 0.79 mg/dl Est Creatinine Clear Calc Drug Dose 140.4 ml/min Estimated GFR () 130.2 Estimated GFR (Non- 112.3 BUN/Creatinine Ratio 11.4 Random Glucose 134 mg/dl Calcium Level 8.0 mg/dl Phosphorus Level 3.3 mg/dl Magnesium Level 2.1 mg/dl
--- NOTE | 2017-10-05 15:43 | Progress Note ---
Subjective Date of Service: Oct 05, 2017. Subjective Pt evaluation today including: conversation w/ patient, physical exam, lab review, review of studies, review of inpatient medication list Saw/examined the patient in room 110 Doing well, slightly anxious, but alert, awake, oriented and no acute issues to note at this time Problem List Medical Problems: (1) Benzodiazepine withdrawal Status: Acute (2) Hyperglycemia Status: Acute (3) Hypoglycemia Status: Acute Review of Systems Constitutional: + weakness Respiratory: No cough, No sputum, No shortness of breath Cardiac: No chest pain Psychiatric: + depression symptoms, + anxiety, + substance abuse Heme: No abnormal bleeding/bruising Medications Current Inpatient Medications Medications (Trade) Dose Ordered Sig/Luma Route Start Time Stop Time Status Last Admin Dose Admin Sodium Chloride 1,000 ml @ 80 mls/hr [id number] IV 10/04/17 08:36 11/03/17 08:35 10/05/17 11:26 80 MLS/HR Insulin Glargine (Lantus Solostar Pen) 10 units Q12 SC 10/04/17 09:00 11/03/17 08:59 10/05/17 08:16 10 UNITS Insulin Aspart (novoLOG ASPART) SLIDING SCALE If C... ACHS SC 10/04/17 11:00 11/03/17 10:59 10/05/17 11:55 2 UNITS Glucose (Glucose 40% Gel) 15-30 GRAMS 15 GRAMS... UD PRN PO 10/04/17 08:45 11/03/17 08:44 Glucose (Glucose Chew Tab) 4-8 Tablets 4 Tabl... UD PRN PO 10/04/17 08:45 11/03/17 08:44 Dextrose (Dextrose 50% 50ML Syringe) 25-50ML OF 50% DW IV FOR... UD PRN IV 10/04/17 08:45 11/03/17 08:44 Glucagon (Glucagon Inj) 1 mg UD PRN SQ 10/04/17 08:45 11/03/17 08:44 Thiamine HCl 100 mg/Syringe 10 ml @ 2 mls/min Q24H IV 10/04/17 11:00 11/03/17 10:59 10/05/17 11:18 2 MLS/MIN Aspirin (Ecotrin Tab) 81 mg DAILY PO 10/04/17 09:00 11/03/17 08:59 10/05/17 08:15 81 MG Bupropion HCl (Wellbutrin-Xl Tab) 150 mg DAILY PO 10/04/17 09:00 11/03/17 08:59 10/05/17 08:14 150 MG Divalproex Sodium (Depakote Delay Rel Tab) 500 mg BID PO 10/04/17 09:00 11/03/17 08:59 10/05/17 08:13 500 MG Quetiapine Fumarate (seroQUEL TAB) 25 mg BID PO 10/04/17 09:00 11/03/17 08:59 10/05/17 08:13 25 MG Risperidone (Risperdal Tab) 3 mg HS PO 10/04/17 21:00 11/03/17 20:59 10/04/17 21:26 3 MG Venlafaxine HCl (effeXOR EXTENDED REL CAP) 150 mg DAILY PO 10/04/17 09:00 11/03/17 08:59 10/05/17 08:15 150 MG Enoxaparin Sodium (Lovenox Inj) 40 mg QAM SQ 10/05/17 09:00 11/04/17 08:59 10/05/17 08:14 40 MG Gabapentin (Neurontin Tab) 600 mg Q8H PO 10/05/17 06:00 10/05/17 22:01 10/05/17 14:05 600 MG Gabapentin (Neurontin Tab) 600 mg Q12H PO 10/06/17 10:00 10/06/17 22:01 Gabapentin (Neurontin Tab) 600 mg Q24H PO 10/07/17 22:00 10/07/17 22:01 Objective Vital Signs Date Time Temp Pulse Resp B/P (MAP) Pulse Ox O2 Delivery O2 Flow Rate FiO2 10/05/17 13:00 75 13 129/77 (94) 91 Room Air 10/05/17 12:30 78 10 150/90 (110) 94 10/05/17 12:01 77 11 131/73 (92) 96 10/05/17 12:00 84 19 96 10/05/17 11:02 96 Nasal Cannula 2.0 10/05/17 11:00 36.7 78 14 115/72 (86) 93 10/05/17 10:30 79 16 113/76 (88) 93 10/05/17 10:00 80 14 113/74 (87) 92 Nasal Cannula 2.0 10/05/17 09:31 92 13 113/86 (95) 95 10/05/17 09:01 88 19 121/80 (94) 94 10/05/17 09:00 83 15 94 10/05/17 08:30 36.8 80 13 134/80 (98) 97 Nasal Cannula 2.0 10/05/17 08:30 96 Nasal Cannula 2.0 10/05/17 08:01 72 24 117/89 (98) 96 10/05/17 08:00 71 19 94 10/05/17 07:31 70 12 117/77 (90) 96 10/05/17 07:30 70 12 95 10/05/17 07:01 78 15 119/78 (92) 96 10/05/17 07:00 72 21 96 10/05/17 06:00 72 15 114/82 (93) 96 Nasal Cannula 2.0 10/05/17 04:00 Nasal Cannula 2.0 10/05/17 04:00 36.7 69 18 110/64 (79) 96 Nasal Cannula 2.0 10/05/17 02:00 73 20 124/78 (93) 95 Nasal Cannula 2.0 10/05/17 00:00 36.8 78 15 114/77 (89) 97 Nasal Cannula 2.0 10/04/17 23:59 Nasal Cannula 2.0 10/04/17 22:00 65 14 120/81 (94) 97 Nasal Cannula 2.0 10/04/17 20:00 36.7 71 27 109/74 (86) 96 Nasal Cannula 2.0 10/04/17 20:00 Nasal Cannula 2.0 10/04/17 18:01 67 17 113/70 (84) 97 Nasal Cannula 2.0 10/04/17 18:00 68 12 96 10/04/17 17:31 68 11 113/69 (84) 98 10/04/17 17:30 69 12 98 18 17:01 65 17 111/69 (83) 96 Nasal Cannula 2.0 10/04/17 17:00 66 10 96 10/04/17 16:31 68 13 109/65 (80) 97 10/04/17 16:30 71 10 97 10/04/17 16:08 96 Nasal Cannula 2.0 10/04/17 16:00 36.9 74 14 124/73 (90) 96 Nasal Cannula 2.0 Physical Exam General Appearance: no apparent distress Respiratory/Chest: no respiratory distress, no accessory muscle use Cardiovascular: regular rate, rhythm, no edema, no murmur Extremities: normal inspection, no pedal edema Neurologic/Psychiatric: no motor/sensory deficits, alert, normal mood/affect Laboratory Results Last 24 Hours Test 10/04/17 15:46 10/04/17 17:03 10/04/17 21:24 10/05/17 05:58 Bedside Glucose 76 mg/dl 180 mg/dl 156 mg/dl 126 mg/dl Test 10/05/17 06:11 10/05/17 11:14 10/05/17 15:17 White Blood Count 4.32 K/uL Red Blood Count 4.21 M/uL Hemoglobin 13.7 g/dL Hematocrit 38.8 % Mean Corpuscular Volume 92.2 fL Mean Corpuscular Hemoglobin 32.5 pg Mean Corpuscular Hemoglobin Concent 35.3 g/dl RDW Standard Deviation 40.5 fL RDW Coefficient of Variation 12.0 % Platelet Count 122 K/uL Mean Platelet Volume 10.8 fL Sodium Level 140 mmol/L Potassium Level 3.6 mmol/L Chloride Level 105 mmol/L Carbon Dioxide Level 31 mmol/L Anion Gap 4.0 mmol/L Blood Urea Nitrogen 9 mg/dl Creatinine 0.79 mg/dl Est Creatinine Clear Calc Drug Dose 140.4 ml/min Estimated GFR () 130.2 Estimated GFR (Non- 112.3 BUN/Creatinine Ratio 11.4 Random Glucose 134 mg/dl Calcium Level 8.0 mg/dl Phosphorus Level 3.3 mg/dl Magnesium Level 2.1 mg/dl Bedside Glucose 152 mg/dl 107 mg/dl Assessment and Plan This is a 41 year old male with an extensive history of drug and alcohol abuse; here due to agitated, altered mental status/confusion Altered Mental Status, likely due to Benzodiazepine Withdrawal Symptoms 10/05 appreciate senior insight manager international input after being admitted yesterday, he became agitate and required ICU admission was on precedex yesterday no off of the drip and doing well will transfer to tele and psych input pending goal: to d/c back to [facility] 10/04 patient is sent here from [facility] having cluster of symptoms including agitation, altered mental status/confusion , tremulous/anxious admits to having trouble with Klonopin, Xanax, Risperdal abuse has a history of alcohol abuse, states his last drink was in January of 2017 plan to admit to tele consult mental health adding Ativan PRN for benzo withdrawal symptoms Gabapentin protocol add thiamine, folic acid, multivitamin check B12, folic acid, TSH, magnesium Insulin Dependent DM2 likely secondary to chronic alcohol abuse and chronic pancreatitis BSGs on arrival > 300; serum ketones negative, trace urinary ketones will check an Ha1c hold oral agents start Lantus at 10 units BID and a sliding scale Depression/Anxiety, possible Bipolar Disorder will continue Risperdal, Effexor, Wellbutrin, and Seroquel home doses for now mental health for medication reconciliation Seizure Disorder has had EtOH withdrawal seizures will continue Depakote at home dose to note: he was receiving Keppra at [facility], but records indicate he was on Depakote monitor electrolytes, magnesium, etc. DVT ppx SCDs FULL CODE
[2017-10-05] MEDS ORDERED: PROPRANOLOL HCL 10 MG TAB PO PRN (16:00)
[2017-10-05] MEDS ORDERED: LORAZEPAM 1 MG TAB PO PRN (18:45)
[2017-10-05] MEDS ORDERED: LORAZEPAM 1 MG TAB PO STA (19:05)
--- NOTE | 2017-10-05 19:46 | Psychiatric Consultation ---
Consultation Date of Consultation Oct 05, 2017. Identifying Data The patient is a 41-year-old male with history of drug and alcohol abuse per records. He presented from [facility] on 10/04/2017 with severe confusion, altered mental status, agitation and combativeness he was admitted medically and psychiatry was consulted for assessment of benzo withdrawal, altered mental status and psychosis. Chief Complaint "I don't remember how I got here". History of Present Illness The patient is a 41-year-old single male with a long-standing history of extensive drug and alcohol abuse. Per record he has a history of complications including alcoholic liver disease, thrombocytopenia, alcohol coagulopathy, chronic pancreatitis and complicated withdrawal to include withdrawal seizures. He has historically abused cocaine reporting last use 6-7 years ago, G BL, marijuana abuse, alcohol dependence (last drink January 2017) and more recently benzodiazepine abuse. He has been getting benzodiazepine's for his anxiety and depression including clonazepam he states 2 mg by mouth daily at bedtime and alprazolam 1 mg by mouth 3 times a day. He will then intermittently stopped taking the medications at random times after overtaking and running out. He will then get withdrawal symptoms. Additionally the patient describes himself as being "dual diagnosis" but denies the word "bipolar". He denies having a history of symptoms of elevated moods or laments to this provider at the bedside on 10/05/2017 but didn't tell her room in the emergency room that he will intermittently take his risperidone and when he stops taking it on his own he recognizes he needs will then take several tablets at once. He states that his prior provider Dr. Kirby in [place] used to prescribe his medications and now it is LYLE OR DR Ren (patient is unsure title) at [facility]. He states his current provider told him "you are not bipolar I will help to get off of some of those medications." When I asked patient he states he takes Wellbutrin XL 150 mg a day, Depakote 500 mg by mouth twice a day, Risperdal 3 mg at bedtime, Effexor 150 mg each day, Xanax 1 mg by mouth 3 times a day, clonazepam 2 mg at bedtime, Glimiperide 6 mg daily. When asked about a psychiatrist he states "don 't have one right now." Earlier today he signed a release for to [facility] would not sign releases for other providers however it appeared at the time he was somewhat confused. When I saw him at the bedside this evening he agreed to resume his psychiatric medications with the exception of holding the Wellbutrin due to seizure risk. He seemed very anxious when he was told he would not be receiving his alprazolam and Klonopin. He got caught in a logical loop agreeing that he was [facility] to be the benzodiazepine's but then states "but you're not supposed to be off those all at once." He did not seem reassured when I explained he was on a withdrawal protocol that would slowly help him wean off benzodiazepine safely here in the hospital. He did state he feels very anxious and restless with some shakiness. He denied hallucinosis, paranoia, ideas of reference. He denied suicidal or homicidal. 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 Her Behavioral health nurse liaison apparently the patient has a history of legal trouble to include becoming violent attacking state police. Apparently he has numerous arrests for assault. When I asked the patient about getting in fights or being aggressive towards others he denies. He did state he had his license revoked for 2 years due to "not stopping when the wharf labourer told me to stop" apparently he continued to drive home and try to shut the garage door. He states his license is eligible for reinstatement in 2020. He denies having active legal charges or warrants. Past Psychiatric History Current OP Treatment: no current treatment (primary care has been refilling his medications according to the patient) Prior OP Treatment: psychiatrist (in the past patient could not recall Dr. Talamantes is a psychiatrist) Prior Psych Hospitalizations: other (he denies, however he was not considered a reliable historian at time of consultation) Suicide Attempts: No (he denies, however he is not considered a reliable historian at time of evaluation) Past Medication Trials Patient was not able to give historical med trials. Past Medical/Surgical History History of Concussion/Seizure: Yes (complicated withdrawal seizures in the past , denies head injuries) (1) Benzodiazepine withdrawal Allergies Allergies: Coded Allergies: Azithromycin (Verified Allergy, Unknown, hives, 10/04/17) Erythromycin (Verified Allergy, Unknown, rash, 10/04/17) Home Medications Scheduled Alprazolam (Xanax), 1 MG PO TID Aspirin (Aspirin Ec), 81 MG PO DAILY Bupropion (Wellbutrin-Xl), 150 MG PO DAILY Clonazepam (Klonopin), 2 MG PO HS Divalproex Sodium (Depakote), 500 MG PO BID Glimepiride (Glimepiride), 6 MG PO DAILY Insulin Glargine (Lantus Solostar), 8 SC QPM Metformin Hcl (Glucophage), 1,000 MG PO BID Quetiapine Fumarate (Seroquel), 25 MG PO BID Risperidone (Risperdal), 3 MG PO HS Venlafaxine Hcl (Effexor Extended Rel), 150 MG PO DAILY Family History Patient could not reasonably contribute he seems somewhat confused with poor attention Alcohol Use Alcohol Use In Past 12 Months: Yes Last use January 2017 with a history of alcohol related medical problems to include liver disease, thrombocytopenia, withdrawal seizures, chronic pancreatitis and possibly legal issues related Smoking Use Smoking Status: Unknown if Ever Smoked (he denied smoking at the psychiatric interview) Substance History See history of present illness as above, history of marijuana, alcohol last January 2017, cocaine last 6-7 years ago, GB L, and more recent benzodiazepine Personal History Childhood: Born and raised in [place] until the age of 13 when he moved to [place]. He graduated high school. He works for [employer]. He is single, no children supports are his dad and his sister. He was raised Restorationist but is not an active part of his current practice when asked about legal issues earlier today he stated "lots" later in the day to this provider he stated "not really" on further evaluation it seems he has lost his license is unclear if he has outstanding legal issues. Review of Systems Patient states he is anxious and tremulous he denies other physical concerns at this time on 10 system review of symptoms Examination Vital Signs Vital Signs Past 12 Hours Date Time Temp Pulse Resp B/P (MAP) Pulse Ox O2 Delivery O2 Flow Rate FiO2 10/05/17 18:48 36.8 75 22 135/78 (97) 96 Room Air 10/05/17 17:05 36.8 75 18 126/80 (95) 94 Room Air 10/05/17 16:00 92 Room Air 10/05/17 16:00 36.7 77 24 132/82 (99) 92 Room Air 10/05/17 13:00 75 13 129/77 (94) 91 Room Air 10/05/17 12:30 78 10 150/90 (110) 94 10/05/17 12:01 77 11 131/73 (92) 96 10/05/17 12:00 84 19 96 10/05/17 11:02 96 Nasal Cannula 2.0 10/05/17 11:00 36.7 78 14 115/72 (86) 93 10/05/17 10:30 79 16 113/76 (88) 93 10/05/17 10:00 80 14 113/74 (87) 92 Nasal Cannula 2.0 10/05/17 09:31 92 13 113/86 (95) 95 10/05/17 09:01 88 19 121/80 (94) 94 10/05/17 09:00 83 15 94 10/05/17 08:30 36.8 80 13 134/80 (98) 97 Nasal Cannula 2.0 10/05/17 08:30 96 Nasal Cannula 2.0 10/05/17 08:01 72 24 117/89 (98) 96 10/05/17 08:00 71 19 94 10/05/17 07:31 70 12 117/77 (90) 96 10/05/17 07:30 70 12 95 Laboratory Results Last 24 Hours Test 10/04/17 21:24 10/05/17 05:58 10/05/17 06:11 10/05/17 11:14 Bedside Glucose 156 mg/dl 126 mg/dl 152 mg/dl White Blood Count 4.32 K/uL Red Blood Count 4.21 M/uL Hemoglobin 13.7 g/dL Hematocrit 38.8 % Mean Corpuscular Volume 92.2 fL Mean Corpuscular Hemoglobin 32.5 pg Mean Corpuscular Hemoglobin Concent 35.3 g/dl RDW Standard Deviation 40.5 fL RDW Coefficient of Variation 12.0 % Platelet Count 122 K/uL Mean Platelet Volume 10.8 fL Sodium Level 140 mmol/L Potassium Level 3.6 mmol/L Chloride Level 105 mmol/L Carbon Dioxide Level 31 mmol/L Anion Gap 4.0 mmol/L Blood Urea Nitrogen 9 mg/dl Creatinine 0.79 mg/dl Est Creatinine Clear Calc Drug Dose 140.4 ml/min Estimated GFR () 130.2 Estimated GFR (Non- 112.3 BUN/Creatinine Ratio 11.4 Random Glucose 134 mg/dl Calcium Level 8.0 mg/dl Phosphorus Level 3.3 mg/dl Magnesium Level 2.1 mg/dl Test 10/05/17 15:17 10/05/17 17:01 Bedside Glucose 107 mg/dl 230 mg/dl Mental Examination During interview pt is: other (alert, oriented to person. He is in a hospital but guessed the wrong hospital, knew the month, year and season) Appearance: other (in hospital bed in hospital gown) Eye contact is: good Motor behavior is: psychomotor agitation (seems restless), tremor Speech: other (regular rate and rhythm, anxious tone) Affect: anxious Mood is: anxious Thought process: goal directed, clear, coherent, other (seems to have some confusion making conflicting statements) Thought content: other (seems to have some residual confusion and gets preoccupied with concepts and circular logic) Suicidal thought are: denied Homicidal thoughts are: denied Hallucinations: denies auditory, denies visual Cognition: other (attention is poor) Intelligence estimated to be: average Insight: poor Judgement: poor Impression / Recommendations Impression The patient is a 41-year-old single white male her medical record and history from patient has long history of alcohol, drug use disorders. He is presently an abrupt withdrawal from benzodiazepine now on JAMIA as scale. He does have some tremulousness and I would encourage the primary team to be very proactive given he has a history of complicated withdrawal. Although he is able to share some of his history he still seems somewhat disoriented to place and some of the details of his history giving conflicting statements about being "dual diagnosis" Bipolar disorder, stating he is going to taper off his medications with this provider and yet telling another provider he knows he does better on the medications. He denies being a danger to himself or others at this time. However he is at risk for complicated withdrawal and ongoing medical observation and assistance with safe withdrawal is very appropriate Inventory Assets Strengths: He is presently admitted to the medical service receiving medical care Needs: Safe withdrawal from substances Aftercare with psychiatry Aftercare was substance abuse services Risk Factors Assessment Male: Yes : Yes /single/: Yes Health problems: Yes Mental Health Diagnoses: Yes Substance use disorders: Yes Protective Factors Assessment Scientology beliefs: No : No Responsible for young children: No Employed: No Stable relationships: No Recommendations (1) Benzodiazepine withdrawal Agree with alcohol withdrawal protocol encourage team to follow closely to avoid complicated withdrawal. Patient will need reassurance as he is still recovering from some of his delirium to include reorientation, and assistance to return to [facility] once he is medically clear from alcohol withdrawal (2) Mood disorder Presumptively the patient has bipolar disorder looking at his vacation regimen. He does not appear psychotic at this time but denies a history of overt psychosis other than when alcohol withdrawal. However he is a poor historian. I would recommend he continue the Depakote, risperidone, Effexor as he reported. I will hold the Wellbutrin given and lower seizure threshold and he is in the throws of benzo withdrawal. It is unclear if Wellbutrin should be re- started given his risk of relapse however if he could be abstinence he may benefit from medication. No further benzos at this time. I have discontinued Seroquel as he states that he is not taking medication. He denies feeling depressed or elevated at this time. We will monitor alongside the medical team through our behavioral health nurse liaison. Please call us if you have questions or concerns. Thank you for letting us participate in the care of this individual. code [id number]
[2017-10-05] MEDS: RISPERIDONE 3 MG TAB PO SCH (20:55)
[2017-10-06 07:14] VITALS: BP 122/77; PULSE 77; TEMP 36.6; O2SAT 94
[2017-10-06 07:22] LABS: HEMATOCRIT 40.4 % (42-52); MEAN CELL VOLUME 93.1 fL (80-100); MEAN CORPUSCULAR HEMOGLOBIN 32.3 pg (25-34); MEAN CORPUSCULAR HGB CONC 34.7 g/dl (32-36); MEAN PLATELET VOLUME 11.2 fL (7.4-10.4); PLATELET COUNT 121 K/uL (130-400); RED CELL DISTRIBUTION WIDTH CV 12.1 % (11.5-14.5); RED CELL DISTRIBUTION WIDTH SD 40.9 fL (36.4-46.3); WHITE BLOOD COUNT 4.51 K/uL (4.8-10.8)
[2017-10-06 07:45] LABS: HEMOGLOBIN A1C 12.2 % (4.5-5.6)
[2017-10-06 07:51] LABS: CALCIUM 8.7 mg/dl (8.5-10.1); CREATININE 0.88 mg/dl (0.60-1.40); PHOSPHORUS 3.5 mg/dl (2.5-4.9); POTASSIUM 3.6 mmol/L (3.5-5.1)
[2017-10-06] MEDS: ASPIRIN 81 MG ECTAB PO SCH (08:02)
[2017-10-06] MEDS: DIVALPROEX SODIUM 500 MG DELAY RELEASE TAB PO SCH (08:02)
[2017-10-06] MEDS: VENLAFAXINE HCL XR 150 MG CAPXR PO SCH (08:03)
[2017-10-06] MEDS: ENOXAPARIN 40 MG/0.4 ML SYR SQ SCH (08:03)
[2017-10-06] MEDS: INSULIN ASPART 100 UNITS/ML 3 ML PEN SC SCH ×3 (08:06→17:51)
[2017-10-06] MEDS: INSULIN GLARGINE SOLOSTAR 100 UNITS/ML 3 ML PEN SC SCH (08:06)
[2017-10-06] MEDS ORDERED: GABAPENTIN 600MG Q12H DOSE PO SCH ×2 (10:00→12:00)
[2017-10-06] MEDS: THIAMINE HCL INJ 100 MG in SYRINGE 9 ML IV SCH (11:41)
[2017-10-06] MEDS: SODIUM CHLORIDE 0.9% 1000ML 1,000 ML IV SCH (11:41)
[2017-10-06 12:13] VITALS: Ht 185.4 cm; Wt 87.9 kg
--- NOTE | 2017-10-06 14:27 | Progress Note ---
Subjective Date of Service: Oct 06, 2017. Subjective Pt evaluation today including: conversation w/ patient, physical exam, lab review, review of studies, conversation w/ literacy consultant, review of inpatient medication list Saw/examined the patient in room 287 slightly anxious this AM states he would want some benzos okay with the plan to get back to [facility] Problem List Medical Problems: (1) Benzodiazepine withdrawal Status: Acute (2) Hyperglycemia Status: Acute (3) Hypoglycemia Status: Acute Review of Systems Respiratory: No shortness of breath Cardiac: No chest pain Psychiatric: + depression symptoms, + anxiety, + substance abuse, No insomnia Medications Current Inpatient Medications Medications (Trade) Dose Ordered Sig/Luma Route Start Time Stop Time Status Last Admin Dose Admin Sodium Chloride 1,000 ml @ 80 mls/hr [id number] IV 10/04/17 08:36 11/03/17 08:35 10/05/17 23:24 80 MLS/HR Insulin Glargine (Lantus Solostar Pen) 10 units Q12 SC 10/04/17 09:00 11/03/17 08:59 10/06/17 08:06 10 UNITS Insulin Aspart (novoLOG ASPART) SLIDING SCALE If C... ACHS SC 10/04/17 11:00 11/03/17 10:59 10/06/17 08:06 13 UNITS Glucose (Glucose 40% Gel) 15-30 GRAMS 15 GRAMS... UD PRN PO 10/04/17 08:45 11/03/17 08:44 Glucose (Glucose Chew Tab) 4-8 Tablets 4 Tabl... UD PRN PO 10/04/17 08:45 11/03/17 08:44 Dextrose (Dextrose 50% 50ML Syringe) 25-50ML OF 50% DW IV FOR... UD PRN IV 10/04/17 08:45 11/03/17 08:44 Glucagon (Glucagon Inj) 1 mg UD PRN SQ 10/04/17 08:45 11/03/17 08:44 Thiamine HCl 100 mg/Syringe 10 ml @ 2 mls/min Q24H IV 10/04/17 11:00 11/03/17 10:59 10/05/17 11:18 2 MLS/MIN Aspirin (Ecotrin Tab) 81 mg DAILY PO 10/04/17 09:00 11/03/17 08:59 10/06/17 08:02 81 MG Bupropion HCl (Wellbutrin-Xl Tab) 150 mg DAILY PO 10/04/17 09:00 11/03/17 08:59 Future Hold 10/05/17 08:14 150 MG Divalproex Sodium (Depakote Delay Rel Tab) 500 mg BID PO 10/04/17 09:00 11/03/17 08:59 10/06/17 08:02 500 MG Risperidone (Risperdal Tab) 3 mg HS PO 10/04/17 21:00 11/03/17 20:59 10/05/17 20:55 3 MG Venlafaxine HCl (effeXOR EXTENDED REL CAP) 150 mg DAILY PO 10/04/17 09:00 11/03/17 08:59 10/06/17 08:03 150 MG Enoxaparin Sodium (Lovenox Inj) 40 mg QAM SQ 10/05/17 09:00 11/04/17 08:59 10/06/17 08:03 40 MG Gabapentin (Neurontin Tab) 600 mg Q12H PO 10/06/17 10:00 10/06/17 22:01 10/06/17 08:02 600 MG Gabapentin (Neurontin Tab) 600 mg Q24H PO 10/07/17 22:00 10/07/17 22:01 Propranolol HCl (Inderal Tab) 10 mg QID PRN PO 10/05/17 16:00 11/04/17 15:59 Objective Vital Signs Date Time Temp Pulse Resp B/P (MAP) Pulse Ox O2 Delivery O2 Flow Rate FiO2 10/06/17 08:00 Room Air 10/06/17 07:14 36.6 77 20 122/77 (92) 94 Room Air 10/06/17 00:00 Room Air 2.0 10/05/17 23:30 36.6 79 16 138/81 (100) 92 Room Air 10/05/17 18:48 36.8 75 22 135/78 (97) 96 Room Air 10/05/17 17:05 36.8 75 18 126/80 (95) 94 Room Air 10/05/17 16:00 92 Room Air 10/05/17 16:00 36.7 77 24 132/82 (99) 92 Room Air Physical Exam Respiratory/Chest: no respiratory distress, no accessory muscle use Cardiovascular: regular rate, rhythm, no edema, no murmur Extremities: normal inspection, no pedal edema Neurologic/Psychiatric: + pertinent finding (pressured speech, tremulous, anxious-appearing) Laboratory Results Last 24 Hours Test 10/05/17 15:17 10/05/17 17:01 10/05/17 20:17 10/06/17 07:01 Bedside Glucose 107 mg/dl 230 mg/dl 119 mg/dl White Blood Count 4.51 K/uL Red Blood Count 4.34 M/uL Hemoglobin 14.0 g/dL Hematocrit 40.4 % Mean Corpuscular Volume 93.1 fL Mean Corpuscular Hemoglobin 32.3 pg Mean Corpuscular Hemoglobin Concent 34.7 g/dl RDW Standard Deviation 40.9 fL RDW Coefficient of Variation 12.1 % Platelet Count 121 K/uL Mean Platelet Volume 11.2 fL Sodium Level 140 mmol/L Potassium Level 3.6 mmol/L Chloride Level 103 mmol/L Carbon Dioxide Level 28 mmol/L Anion Gap 9.0 mmol/L Blood Urea Nitrogen 9 mg/dl Creatinine 0.88 mg/dl Est Creatinine Clear Calc Drug Dose 126.1 ml/min Estimated GFR () 124.5 Estimated GFR (Non- 107.5 BUN/Creatinine Ratio 9.7 Random Glucose 201 mg/dl Calcium Level 8.7 mg/dl Phosphorus Level 3.5 mg/dl Magnesium Level 2.0 mg/dl Test 10/06/17 08:00 10/06/17 11:54 Bedside Glucose 250 mg/dl 127 mg/dl Assessment and Plan This is a 41 year old male with an extensive history of drug and alcohol abuse; here due to agitated, altered mental status/confusion Altered Mental Status, likely due to Benzodiazepine Withdrawal Symptoms 10/06 has been off of benzo x 24 hours plan to d/c on gabapentin taper plan to d/c back to [facility] if able today 10/05 appreciate 911 dispatcher input after being admitted yesterday, he became agitate and required ICU admission was on precedex yesterday no off of the drip and doing well will transfer to tele and psych input pending goal: to d/c back to [facility] 10/04 patient is sent here from [facility] having cluster of symptoms including agitation, altered mental status/confusion , tremulous/anxious admits to having trouble with Klonopin, Xanax, Risperdal abuse has a history of alcohol abuse, states his last drink was in January of 2017 plan to admit to tele consult mental health adding Ativan PRN for benzo withdrawal symptoms Gabapentin protocol add thiamine, folic acid, multivitamin check B12, folic acid, TSH, magnesium Insulin Dependent DM2 likely secondary to chronic alcohol abuse and chronic pancreatitis BSGs on arrival > 300; serum ketones negative, trace urinary ketones will check an Ha1c hold oral agents start Lantus at 10 units BID and a sliding scale Depression/Anxiety, possible Bipolar Disorder will continue Risperdal, Effexor, Wellbutrin, and Seroquel home doses for now mental health for medication reconciliation Seizure Disorder has had EtOH withdrawal seizures will continue Depakote at home dose to note: he was receiving Keppra at [facility], but records indicate he was on Depakote monitor electrolytes, magnesium, etc. DVT ppx SCDs FULL CODE
[2017-10-06] MEDS ORDERED: INSDGIPEN SC (14:30)
[2017-10-06] MEDS ORDERED: MULT-589 PO (14:30)
[2017-10-06] MEDS ORDERED: NRN600 PO (14:30)
[2017-10-06] MEDS ORDERED: FLV1 PO (14:30)
[2017-10-06] MEDS ORDERED: PROP10TA7 PO (14:30)
[2017-10-06] MEDS ORDERED: THM100 PO (14:30)
--- NOTE | 2017-10-06 14:35 | Discharge Instructions ---
Discharge Instructions Date of Service Oct 06, 2017. Admission Reason for Admission: Benzodiazepine Withdrawal,Diabetes Discharge Discharge Diagnosis / Problem: Benzodiazepine Withdrawal, Drug Overdose, Diabetes Discharge Goals Goal(s): Decrease discomfort, Improve function, Diagnostic testing, Therapeutic intervention Activity Recommendations Activity Limitations: resume your previous activity . Instructions / Follow-Up Instructions / Follow-Up To [facility] for substance abuse please check blood sugars 2-3 times daily Current Hospital Diet Patient's current hospital diet: Regular Diet, Diabetes Type 1 Diet Discharge Diet Recommended Diet: Regular Diet, Diabetes Type 1 Diet Pending Studies Studies pending at discharge: no Laboratory Results Hemoglobin A1c Test 10/05/17 06:11 Range/Units Estimated Average Glucose 303 mg/dl Hemoglobin A1c 12.2 H 4.5-5.6 % Medical Emergencies . Who to Call and When: Medical Emergencies: If at any time you feel your situation is an emergency, please call 911 immediately. . Non-Emergent Contact Non-Emergency issues call your: Primary Care Provider, Specialist (psychiatry) . . "Provider Documentation" section prepared by Ralu Farfan. . VTE Core Measure Inpt VTE Proph given/why not?: Enoxaparin (Lovenox)SQ [place] Drug Monitoring Program Search Results: patient reviewed within database
--- NOTE | 2017-10-06 14:39 | Psych Management Progress Note ---
Psychiatry Miscellaneous Date of Service: Oct 06, 2017. Spoke with the psychiatric liaison nurse and primary attending, Dr. Farfan, who requested recommendations for benzodiazepines. He states that the patient may be medically cleared today for return to [facility] rehabilitation. Reviewed the records, which indicate patient was admitted for benzodiazepine withdrawal on referral from inpatient rehabilitation. He gave inconsistent reports about his outpatient physician, and review of the PDMP reveals that he has been filling clonazepam and alprazolam prescriptions monthly from Dr. Aaron Bee in [place], [place]. He was sent to our facility 10/04/17 due to confusion, disorientation, and hallucinations, one day after arriving at [facility] for rehabilitation. He told hospital staff that he had been abusing marijuana, alcohol, benzodiazepines, GBL (gamma-butylactone), and cocaine, had been transferred from [facility] to [facility], and drug screen was positive for benzodiazepines. He was admitted to the medical service and started on a gabapentin taper for alcohol withdrawal with as needed lorazepam. He was seen by the licensed professional counselor, who started a Precedex infusion, and checked his Depakote level, which was 42. He was seen by Dr. Howard yesterday, reported stable mood ongoing disorientation and confusion, and she recommended resuming his home doses of venlafaxine XR, risperidone and Depakote. Wellbutrin was held due to the risk of lowering the seizure threshold while in benzodiazepine withdrawal. Quetiapine was discontinued as he said he was not taking it. She recommended that benzodiazepines be discontinued, and he be returned to [facility] once medically stabilized. There is a letter from [facility] for addiction in his chart, which indicates that he may not take controlled substances at their facility, including opiates and benzodiazepines. Spoke with Dr. Farfan, who indicates the patient may be medically cleared today. Advised that they coordinate with [facility] to determine if they can manage his current symptoms at their facility. Also asked the liaison nurse to obtain a release from the patient to coordinate care with his outpatient physician, Dr. Bee. Records should be sent to Dr. Bee, so that he is aware of the ongoing substance abuse, he is prescribing multiple controlled substances to the patient. Agree with Dr. Howard's recommendations to return to [facility] once appropriate.
[2017-10-06 15:29] VITALS: BP 122/77; PULSE 77; TEMP 36.6; O2SAT 94
[2017-10-06 15:35] VITALS: BP 142/84; PULSE 76; TEMP 36.5; O2SAT 94
--- NOTE | 2017-10-06 15:44 | Discharge Summary ---
Discharge Summary Date of Service Oct 06, 2017. Discharge Summary Admission Date: Oct 04, 2017 at 08:45 Discharge Date: Oct 06, 2017 Discharge Disposition: Rehab Principal Diagnosis: Benzo Withdrawal Drug Abuse/Overdose Medication Reconciliation New Medications: Folic Acid (Folic Acid) 1 Mg Tab 1 MG PO DAILY for 30 Days, #30 TABS Multivitamins (Daily Mir) 1 Tab Tab 1 TAB PO DAILY for 30 Days, #30 TABS Thiamine HCl (Vitamin B-1) 100 Mg Tab 100 MG PO DAILY for 30 Days, #30 TABS Gabapentin (Gabapentin) 600 Mg Tab 600 MG PO Q24H for 5 Days, #5 TAB Propranolol (Inderal) 10 Mg Tab 10 MG PO QID PRN for Anxiety/Agitation for 10 Days, #40 TAB Changed Medications: Insulin Glargine (Lantus Solostar) 100 Unit/Ml Inj 10 UNITS SC BID for 30 Days, #3 PEN (Changed from: 8 ; QPM) Continued Medications: Aspirin (Aspirin Ec) 81 Mg Tab 81 MG PO DAILY Divalproex Sodium (Depakote) 500 Mg Tab 500 MG PO BID for 30 Days, #60 TAB 2 Refills Glimepiride (Glimepiride) 4 Mg Tab 6 MG PO DAILY for 90 Days, #135 TAB 3 Refills Metformin Hcl (Glucophage) 1,000 Mg Tab 1000 MG PO BID, TAB Risperidone (Risperdal) 3 Mg Tab 3 MG PO HS, TAB Venlafaxine Hcl (Effexor Extended Rel) 150 Mg Cap 150 MG PO DAILY, CAP Discontinued Medications: Alprazolam (Xanax) 1 Mg Tab 1 MG PO TID, TAB Clonazepam (Klonopin) 2 Mg Tab 2 MG PO HS, TAB Admission Information HPI (per Admitting provider): This is a 41 year old male with an extensive history of drug and alcohol abuse. As per records, he has a history of alcohol abuse and multiple complications including alcoholic liver disease, thrombocytopenia, alcoholic coagulopathy, chronic pancreatitis and many withdrawal symptoms including withdrawal seizures. He also has an extensive drug abuse history which includes benzodiazepine abuse, cocaine abuse, GBL and marijuana abuse. He states that he last had a drink in January of 2017 due to being in trouble with the law. He last had cocaine about 6-7 years ago. He recently has had trouble with benzo abuse - has been getting benzodiazepines for his anxiety/depression - including Klonopin and Xanax, which he states he stops taking at random times, and then takes too much of when he gets withdrawal symptoms. He also is prescribed Risperdal and states he stops taking this at times on his own, but realizes he needs it, so takes multiple tablets at once. He was seen at the [facility] - but was sent over here due to worsening confusion, altered mental status, agitation and combativeness. He states he realizes that these symptoms occur but cannot stop his anger/agitation. Currently, denies most other symptoms, including chest pain, shortness of breath, nausea/vomiting/ diarrhea, fevers/chills. Physical Exam (per Admitting): General Appearance: + pertinent finding (+agitated, anxious, tremulousness) Head: normocephalic, atraumatic Eyes: normal inspection ENT: hearing grossly normal Respiratory/Chest: lungs clear, normal breath sounds, no respiratory distress, no accessory muscle use Cardiovascular: no edema, no gallop, no JVD, no murmur, + tachycardia Abdomen/GI: normal bowel sounds, non tender, soft Back: normal inspection, normal range of motion Extremities/Musculoskelatal: normal inspection, no calf tenderness, normal capillary refill, no pedal edema, normal range of motion Neurologic/Psych: alert, + depressed affect, + disoriented, + pertinent finding (flight of ideas, agitated, can be redirected, anxious, tremulous, currently calm and answering questions appropriately, but somewhat disoriented) Skin: normal color, warm/dry Lymphatic: no adenopathy Hospital Course This is a 41 year old male with an extensive history of drug and alcohol abuse; here due to agitated, altered mental status/confusion Altered Mental Status, likely due to Benzodiazepine Withdrawal Symptoms 10/06 has been off of benzo x 24 hours plan to d/c on gabapentin taper plan to d/c back to [facility] if able today 10/05 appreciate reproductive healthcare assistant input after being admitted yesterday, he became agitate and required ICU admission was on precedex yesterday no off of the drip and doing well will transfer to tele and psych input pending goal: to d/c back to [facility] 10/04 patient is sent here from [facility] having cluster of symptoms including agitation, altered mental status/confusion , tremulous/anxious admits to having trouble with Klonopin, Xanax, Risperdal abuse has a history of alcohol abuse, states his last drink was in January of 2017 plan to admit to tele consult mental health adding Ativan PRN for benzo withdrawal symptoms Gabapentin protocol add thiamine, folic acid, multivitamin check B12, folic acid, TSH, magnesium Insulin Dependent DM2 likely secondary to chronic alcohol abuse and chronic pancreatitis BSGs on arrival > 300; serum ketones negative, trace urinary ketones will check an Ha1c hold oral agents start Lantus at 10 units BID and a sliding scale Depression/Anxiety, possible Bipolar Disorder will continue Risperdal, Effexor, Wellbutrin, and Seroquel home doses for now mental health for medication reconciliation Seizure Disorder has had EtOH withdrawal seizures will continue Depakote at home dose to note: he was receiving Keppra at [facility], but records indicate he was on Depakote monitor electrolytes, magnesium, etc. DVT ppx SCDs FULL CODE Total time spent on discharge = 50 minutes This includes examination of the patient, discharge planning, medication reconciliation, and communication with other providers. Discharge Instructions To [facility] for substance abuse please check blood sugars 2-3 times daily
[2017-10-07] MEDS ORDERED: GABAPENTIN 600MG X1 DOSE PO SCH (22:00)
[2017-10-08] MEDS ORDERED: GABAPENTIN 600MG X1 DOSE PO SCH
== END 2017-10-06 18:33 | DRG 897 ==
LOC: EDBD 03:58 → C.EDB 04:00 → C.MSICU 08:45 → ENRESERV 09:17 → C.MED 10-05 17:08
PROVIDERS: ADMIT Family Medicine; ATTEND Family Medicine
DX: F13.231 Sedative, hypnotic or anxiolytic dependence with withdrawal delirium (principal); E11.65 Type 2 diabetes mellitus with hyperglycemia; F10.10 Alcohol abuse, uncomplicated; F32.9 Major depressive disorder, single episode, unspecified; F41.9 Anxiety disorder, unspecified; G40.909 Epilepsy, unspecified, not intractable, without status epilepticus; Z79.4 Long term (current) use of insulin; Z79.82 Long term (current) use of aspirin